=== PATIENT | female | born 1970 | race Caucasian/White ===

== ENCOUNTER 2018-11-28 19:41 | Inpatient (IN) ==
[2018-11-28 20:38] LABS: BASO# 0.05 X1000 (0.0-0.2); BASO% 0.4 % (0.0-0.8); EOS# 0.53 X1000 (0.0-0.7); EOS% 4.4 % (0.0-10.0); HEMATOCRIT 38.8 % (37.0-47.0); HEMOGLOBIN 12.5 g/dL (12.0-16.0); IMM GRAN# 0.03 X1000 (0.0-0.04); IMM GRAN% 0.2 % (0.0-0.5); LYMPH# 4.14 X1000 (1.2-3.4); LYMPH% 34.3 % (20.5-51.1); MCH 27.9 PG (27-31); MCHC 32.2 g/dL (33-37); MCV 86.6 FL (81-99); MONO# 0.65 X1000 (0.11-0.59); MONO% 5.4 % (1.7-9.3); MPV 9.2 FL (7.4-10.4); NEUT# 6.68 X1000 (1.4-6.5); NEUT% 55.3 % (42.2-75.2); PLT 307 X1000 (130-400); RBC 4.48 XMIL (4.2-5.4); RDW 14.6 % (11.5-14.5); WBC 12.08 X1000 (4.8-10.8)
[2018-11-28 21:04] LABS: AGAP 9; ALB/GLOB RATIO 1.1; ALBUMIN 4.1 g/dL (3.5-5.0); ALKALINE PHOSPHATASE 89 U/L (32-104); BUN 20 mg/dL (8-22); CALCIUM 8.9 mg/dL (8.8-10.2); CHLORIDE 105 mmol/L (98-107); COSMO 288; CREATININE 0.7 mg/dL (0.5-0.9); ESTIMATED GFR > 60; GLUCOSE 133 mg/dL (70-104); GOT 20 U/L (10-30); GPT 19 U/L (10-36); POTASSIUM 3.8 mmol/L (3.5-5.1); SODIUM 142 mmol/L (136-145); TCO2 28 mmol/L (25-35); TOTAL BILIRUBIN 0.23 mg/dL (0.20-1.00); TOTAL PROTEIN 7.7 g/dL (6.3-8.3)
--- NOTE | 2018-11-28 22:00 | Diag Imaging Result Doc PS360 ---
EXAM: CT EXT LOWER RIGHT W/CON 11/28/2018 HISTORY: right ankle cellulitis TECHNIQUE: CT of the right ankle with intravenous contrast COMMENT: The current study is compared with the previous examination of 08/23/2018. There are erosions of the plafond and talar dome which were also present at the time the previous study. The upper part of the subtalar joint appears more irregular than on the previous study and there are erosions in the articular surfaces of the cuboid and cuneiforms and tarsal navicular. This was also the case previously. The area of hyperdensity seen posterior to the ankle and just above the calcaneus, anterior to the Achilles tendon is somewhat less dense and homogeneous and on the previous study. It is possible that this represented a deposit of calcium pyrophosphate or possibly a gouty tophus. Some hyperdense material is also seen between the distal fibula and the talus. There is no definite abscess however there is extensive subcutaneous edema and edema surrounding the ankle and tarsus. 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 The possibility of septic arthritis, gout or even neuropathic joint disease cannot be excluded. Electronically signed by George Cheney 11/28/2018 9:57 PM
--- NOTE | 2018-11-28 23:06 | PROVIDER DOCUMENTATION ---
This chart was entered by Lindsay Celestin Scribe, acting as scribe for Hany Ghosh CRNP. HPI-Musculoskeletal Pain/Inj - GENERAL Chief Complaint: Edema Stated Complaint: (R) ANKLE SWELLING Time Seen by Provider: 11/28/18 20:00 Source: patient - HX OF PRESENT ILLNESS-MUSKULOSKELTAL Nature of Presenting Problem: 48 yof c/o rt ankle swelling starting yesterday. pt sts dr. burden cut out large portion of ankle, skin, subcutaneous tissue and fascia, due to septic arthritis in ankle in october 2017. pt denies injury or fall. swelling has not spread to calf. Quality of Pain: reports: other (swelling) Severity in ED: mild Onset/Duration: other (yesterday) Timing: still present - FALL INJURY Location of Pain/Injury: reports: none Pain Radiation: reports: no radiation Symptoms prior to fall:: reports: none Loss of Consciousness: no loss of consciousness Injury Associated Symptoms: reports: denies symptoms - LOWER EXTREMITY PAIN/INJURY Lower Extremities Pain: ankle: right (swelling, redness and tenderness ) Context / Method of Injury: reports: other (hx of rt ankle sx last year) Associated Symptoms: reports: denies symptoms Review of Systems - Adult - REVIEW OF SYSTEMS - ADULT Constitutional: reports: no symptoms reported. denies: fever, fatique, night sweats Eyes: reports: no symptoms reported Ears, Nose, Mouth & Throat: reports: no symptoms reported Cardiovascular: reports: no symptoms reported Respiratory: reports: no symptoms reported Gastrointestinal: reports: no symptoms reported Genitourinary: reports: no symptoms reported Musculoskeletal: reports: see HPI, joint swelling (rt ankle) Integumentary: reports: no symptoms reported Neurological: reports: no symptoms reported Psychiatric: reports: no symptoms reported Endocrine: reports: no symptoms reported Hematologic/Lymphatic: reports: no symptoms reported Allergic/Immunologic: reports: no symptoms reported All Other Systems: Reviewed and Negative Past History - Adult - PAST MEDICAL HISTORY-ADULT Review of Records: reports: Old Records Reviewed, Nursing Assessment Review, Medications Reviewed, Social history reviewed & non-contributory. Major Childhood Illnesses: reports: history unknown Cardiovascular: reports: HTN, other (edema of feet) Respiratory: reports: denies history, sleep apnea Gastrointestinal: reports: denies history Obstetrical/Gynecological: reports: denies history, other Genitourinary: reports: denies history, kidney disease Musculoskeletal: reports: arthritis, chronic pain, intervertebral disc disease Neurological: reports: denies history Psychiatric: reports: anxiety, depression, other (narcotic addiction) Endocrine/Immune: reports: thyroid disorder Other Conditions: reports: other cancer - PRIOR SURGERIES/PROCEDURES Surgical/Procedure History: reports: reviewed, not pertinent, orthopedic (extremity), other (tympanoplasty as an adult) - PRIOR HOSPITALIZATIONS Prior Hospitalizations: reports: other (for septic joint) - IMMUNIZATION STATUS Childhood Immunizations: See Nurse Assessment Flu Vaccine: See Nurse Assessment - FAMILY HISTORY Family History: reviewed, not pertinent - SOCIAL HISTORY Smoking: cigarettes, greater than 1 pack/day Provider spent 3-5 mins advising pt. on dangers of tobacco.: Discussed manners to quit use, and f/u contacts for add'l counseling. Substance Use: none/never Physical Exam-Injury Related - Physical Exam-Injury Related Initial Vital Signs Reviewed: Yes General Appearance: appears well, alert, no apparent distress. negative: lethargic, slow to respond, obtunded Immobilization?: negative: backboard, C-collar Eyes: PERRL/EOMI, pink conjunctivae Head, Ears, Nose, Mouth & Throat: normocephalic/atraumatic, moist mucous membranes, normal ENT inspection Neck: non-tender, full range of motion, supple, normal inspection Respiratory: chest non-tender, lungs clear, normal breath sounds Cardiovascular: normal peripheral pulses, regular rate, rhythm Chest/Breast: deferred Peripheral Pulses: radial (R): 2+, radial (L): 2+ Abdominal Exam: normal bowel sounds, non tender, soft Female Genitalia/Pelvic Exam: deferred Lymphatic: no adenopathy Back Exam: normal inspection, no CVA tenderness, no vertebral tenderness Extremity: normal range of motion, no calf tenderness, erythema (rt ankle), swelling (rt ankle), tenderness (rt ankle to palp), other (swelling not moving up rt leg). negative: non-tender, normal inspection, abnormal NV exam, calf tenderness, deformity, inflammation Integumentary: normal color, warm/dry Neurologic: grossly normal, no motor/sensory deficits Psych/Mental Status: normal mood/affect, normal thought content, normal thought process, oriented x 3 - Glascow Coma Score Best Eye Response (Maysel): (4) open spontaneously Best Verbal Response (Priya): (5) oriented Best Motor Response (Priya): (6) obeys commands Priya Total: 15 Progress - PLAN OF CARE/RESULTS Progress/Plan/Lab Results: Vital Signs - 8 hr 11/28/18 19:45 Temperature 97.7 F Pulse Rate 119 H Respiratory Rate 19 Blood Pressure 126/86 O2 Sat by Pulse Oximetry 99 Laboratory Results - last 24 hr 11/28/18 11/28/18 20:25 20:25 WBC 12.08 H RBC 4.48 Hgb 12.5 Hct 38.8 MCV 86.6 MCH 27.9 MCHC 32.2 L RDW Std Deviation 14.6 H Plt Count 307 MPV 9.2 Immature Gran % (Auto) 0.2 Neut % (Auto) 55.3 Lymph % (Auto) 34.3 Gates % (Auto) 5.4 Eos % (Auto) 4.4 Baso % (Auto) 0.4 Immature Gran # (Auto) 0.03 Neut # (Auto) 6.68 H Lymph # (Auto) 4.14 H Gates # (Auto) 0.65 H Eos # (Auto) 0.53 Baso # (Auto) 0.05 Sodium 142 Potassium 3.8 Chloride 105 Carbon Dioxide 28 Anion Gap 9 BUN 20 Creatinine 0.7 Estimated GFR/1.73 m2 > 60 BUN/Creatinine Ratio 29 Glucose 133 H Calculated Osmolality 288 Calcium 8.9 Total Bilirubin 0.23 AST 20 ALT 19 Alkaline Phosphatase 89 Total Protein 7.7 Albumin 4.1 Globulin 3.6 Albumin/Globulin Ratio 1.1 Orders Category Date Time Status CT EXT LOWER RIGHT W/CON [CT] Stat Exams 11/28/18 20:12 Completed CBC WITH DIFF [HEME] Stat Lab 11/28/18 20:25 Completed COMPREHENSIVE METABOLIC PANEL [CHEM] Stat Lab 11/28/18 20:25 Completed patient verbalizes an understanding of POC and agrees to treatment rendered here today. Result Diagrams: 11/28/18 20:25 11/28/18 20:25 - CT/MRI 1 CT Study: Lower Ext Impression: Abnormal (COMMENT: The current study is compared with the previous examination of 08/23/2018. There are erosions of the plafond and talar dome which were also present at the time the previous study. The upper part of the subtalar joint appears more irregular than on the previous study and there are erosions in the articular surfaces of the cuboid and cuneiforms and tarsal nick icular. This was also the case previously. The area of hyperdensity seen posterior to the ankle and just above the calcaneus, anterior to the Achilles tendon is somewhat less dense and homogeneous and on the previous study. It is possible that this represented a deposit of calcium pyrophosphate or possibly a gouty tophus. Some hyperdense material is also seen between the distal fibula and the talus. There is no definite abscess however there is extensive subcutaneous edema and edema surrounding the ankle and tarsus. 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 The possibility of septic arthritis, gout or even neuropathic joint disease cannot be excluded.), See EMR Report - CONSULTS/PCP/HOSPITALIST Notification #1 *Consult/PCP/Hospitalist*: Dr Benedict Time Discussed: 10:45 Reason/Comments: cellulitis of the ankle Consult Disposition: other (admit and consult dr burden in am) #2 Consult: Dr Call Time Discussed: 23:04 Reason/Comments: cellulitis Consult Disposition: Admit Departure - Departure Date of Disposition Decision: 11/28/18 Time of Disposition Decision: 23:04 DIAGNOSIS: Cellulitis of left ankle Disposition: ADMITTED INPATIENT 09 Certified Medical Emergency: Emergent Condition: Critical Additional Freetext Instructions: ED Follow Up Instructions: You have been treated by a care provider in the Emergency Department. These instructions are being provided to you so you can have an understanding of how to care for yourself upon discharge. Upon discharge from the Emergency Department, you are responsible for making arrangements for follow-up care by a physician of your choice. Take all prescribed medications as directed. Return to the Emergency Department immediately for any new or worsening symptoms. You may call the Physician Referral phone number at [phone] to obtain a list of Physicians who are taking new patients. Referrals and Follow-Ups: Steve Galvan MD [Primary Care Provider] - - Critical Care Note This patient required my direct & personal management of CC.: No Attestation - Physician/ MIKE Attestation Patient care was provided by Advanced Practice Provider:: Yes Advanced Practice Provider:: Hany Ghosh Advanced Practice Provider documentation review:: The Mid-level provider documentation, treatment plan and medical decision making was reviewed by the physician who agrees with all treatment and medical decision making by the MLP. The physician spent face to face time with patient:: No Advanced Practice Provider documentation review:: Supervising physician onsite and consulted in the evaluation and care of this patient. The physician did not have a face to face encounter with the patient. This chart was documented by the indicated scribe, (Lindsay Celestin Scribe) and accurately reflects the services I performed and decisions made by Davina mesa Reagan R., CRNP, as attested by the provider's signature.
[2018-11-29] MEDS ORDERED: ROCEPHIN 2 GM in NS 50 ML IV ONE (00:56)
[2018-11-29] MEDS ORDERED: VANCOMYCIN 1 GM/NS 1 GM/250 ML IVPB IV ONE (00:56)
[2018-11-29] MEDS ORDERED: ROCEPHIN 2 GM in NS 50 ML IV SCH (01:59)
[2018-11-29] MEDS ORDERED: VANCOMYCIN IV PER PHARMACY MISC SCH (01:59)
[2018-11-29] MEDS ORDERED: TYLENOL PO PRN (01:59)
[2018-11-29] MEDS ORDERED: ZOFRAN IV PRN (01:59)
[2018-11-29 02:26] LABS: C REACTIVE PROT QUANT 9.39 mg/L (0.00-5.00); URIC ACID 5.1 mg/dL (2.4-5.7)
[2018-11-29] MEDS: OXY IR PO PRN ×2 (03:00→14:35)
[2018-11-29] MEDS ORDERED: VANCOMYCIN 2,050 MG in NS 500 ML IV ONE (03:00)
--- NOTE | 2018-11-29 03:33 | HISTORY AND PHYSICAL ---
PHYSICIAN: Patient of Dr. Galvan. REASON FOR ADMISSION: Two-day history of right ankle pain and swelling. HISTORY OF PRESENT ILLNESS: Ms. Almaz Mackenzie is a 48-year-old woman with past medical history of chronic pain syndrome, gastric ulcers, hypertension, restless legs syndrome, sleep apnea, who was last treated here for possible cellulitis and septic arthritis of the right ankle. Comes in today complaining of a 2-day history of right ankle pain and swelling without any preceding trauma. Denies any other joint swelling or rash. No fever or chills. No cardiorespiratory, GI, or neurological complaints. Said that over the last 24 hours the swelling, and redness and pain have gotten increasingly worse and she decided to come and get this checked out. REVIEW OF SYSTEMS: Twelve system review was done. Positive findings per HPI. ALLERGIES: Bactrim. HOME MEDICATIONS: Include Phenergan, nafcillin, furosemide, Lyrica, senna Plus, Prinzide, Requip, rifampin, Suboxone, Xanax, Zoloft. SURGICAL HISTORY: Left elbow surgery, tubal ligation, abdominal hernia repair with mesh, removal of mesh. SOCIAL HISTORY: Patient smokes 1 pack a day, plans to quit. No alcohol or drug use. Lives with her son. FAMILY HISTORY: Notable for type 2 diabetes and lymphoma. LABORATORY WORK: White count 12,000 up from 10,000 three months ago. Hemoglobin and hematocrit 12 and 38, platelets 287,000 normal differential. BUN is 20, creatinine 0.7, glucose 133. CT scan of the lower extremity showed severe erosive arthritis of the ankle and into intertarsal joints, possibility of septic arthritis, gout or neuropathic joint disease cannot be excluded. PHYSICAL EXAMINATION: GENERAL: Obese, middle-aged woman who is not in acute distress. VITAL SIGNS: Heart rate is 119, temperature is 97.7 degrees, respiratory rate is 19, blood pressure is 126/86, 99% on room air. HEENT: Head is normocephalic, atraumatic. Eyes, RICHARD, EOMI. She is anicteric and not pale. ENT and oropharynx exam is grossly normal. NECK: Supple. No JVD or carotid bruit. No thyromegaly. CHEST: Clear when auscultated with good entry both lung zavala. CARDIOVASCULAR: First and second heart sounds are heard. No gallops, murmurs, rubs. Rhythm is regular. ABDOMEN: Protuberant, soft, nontender. No mass, megaly. Bowel sounds hypoactive. RECTAL: Exam is deferred at this time. EXTREMITIES: Patient has localized swelling of the lateral malleolar area and some slight erythema. It is warm to touch compared to surrounding tissue and is tender to touch, but no induration or fluctuance noted. There is some slight mild erythema proximal to this area on the right lateral lower aspect her right extremity. No edema, clubbing or peripheral cyanosis. Pulses distally intact, regular. NEUROLOGICAL: No gross focal deficits. SKIN: Intact. No breakdown, lesion, erythema other than findings noted as above. MUSCULOSKELETAL: Exam is grossly normal. ASSESSMENT: 1. Inflammatory arthritis, septic versus nonseptic arthritis. 2. Mild dehydration. 3. Hypertension. PLAN: C-reactive protein, uric acid will be ordered. Discontinue hydrochlorothiazide and Lasix as these can increase the potential of a crystal-induced inflammatory arthritis. Dr. Benedict, who is covering for Dr. Zamora, was notified and he will pass along this patient's name to Dr. Zamora for further workup which may include an arthrocentesis. The patient was started on IV vancomycin and Rocephin and ID may be consulted for further input if so desired. For now, we will treat patient symptomatically in addition to the aforementioned IV antibiotics prescribed. The patient will be transferred to Dr. Galvan's service in the morning. cc: MD Steve Ferris MD [facility]
[2018-11-29] MEDS: PERICOLACE PO SCH ×3 (05:04→21:18)
[2018-11-29] MEDS: NAPROSYN PO SCH ×2 (05:04→08:25)
[2018-11-29] MEDS: SUBOXONE 8 MG/2 MG SL SCH ×2 (05:04→15:57)
[2018-11-29] MEDS: LOVENOX SUBQ SCH (05:06)
[2018-11-29] MEDS: PHENERGAN PO PRN (05:50)
[2018-11-29 05:53] LABS: BASO# 0.04 X1000 (0.0-0.2); BASO% 0.4 % (0.0-0.8); EOS# 0.38 X1000 (0.0-0.7); EOS% 4.2 % (0.0-10.0); HEMATOCRIT 37.5 % (37.0-47.0); HEMOGLOBIN 11.9 g/dL (12.0-16.0); IMM GRAN# 0.02 X1000 (0.0-0.04); IMM GRAN% 0.2 % (0.0-0.5); LYMPH# 3.49 X1000 (1.2-3.4); LYMPH% 38.4 % (20.5-51.1); MCH 27.9 PG (27-31); MCHC 31.7 g/dL (33-37); MCV 87.8 FL (81-99); MONO# 0.61 X1000 (0.11-0.59); MONO% 6.7 % (1.7-9.3); MPV 9.3 FL (7.4-10.4); NEUT# 4.54 X1000 (1.4-6.5); NEUT% 50.1 % (42.2-75.2); PLT 303 X1000 (130-400); RBC 4.27 XMIL (4.2-5.4); RDW 14.8 % (11.5-14.5); WBC 9.08 X1000 (4.8-10.8)
[2018-11-29 05:58] LABS: AGAP 7; BUN 18 mg/dL (8-22); CHLORIDE 104 mmol/L (98-107); COSMO 285; CREATININE 0.7 mg/dL (0.5-0.9); ESTIMATED GFR > 60; GLUCOSE 96 mg/dL (70-104); POTASSIUM 3.9 mmol/L (3.5-5.1); SODIUM 142 mmol/L (136-145); TCO2 31 mmol/L (25-35)
[2018-11-29] MEDS: TEFLARO 600 MG in NS 250 ML IV SCH ×2 (08:24→19:57)
[2018-11-29] MEDS: XANAX PO SCH ×3 (08:25→21:18)
[2018-11-29] MEDS: LYRICA PO SCH ×2 (08:25→21:18)
[2018-11-29] MEDS: RIFAMPIN PO SCH (08:25)
[2018-11-29] MEDS: ZOLOFT PO SCH (08:25)
[2018-11-29] MEDS: PRINIVIL PO SCH (08:26)
[2018-11-29] MEDS: NICODERM PATCH TD SCH (10:01)
[2018-11-29] MEDS: ZOSYN 3.375 GM in NS 50 ML IV SCH ×3 (10:01→21:17)
[2018-11-29] MEDS ORDERED: VANCOMYCIN 1,950 MG in NS 500 ML IV SCH (15:00)
[2018-11-29] MEDS: ZANAFLEX PO SCH (21:18)
[2018-11-29] MEDS: VOLTAREN PO SCH (21:18)
[2018-11-29] MEDS: REQUIP PO SCH (21:18)
[2018-11-30] MEDS: LOVENOX SUBQ SCH (03:06)
[2018-11-30] MEDS: ZOSYN 3.375 GM in NS 50 ML IV SCH ×4 (03:06→21:49)
[2018-11-30] MEDS: SUBOXONE 8 MG/2 MG SL SCH ×2 (03:06→17:06)
--- NOTE | 2018-11-30 03:45 | PROGRESS NOTE ---
DATE: 11/29/2018 SUBJECTIVE: The patient was admitted with severe pain in the right ankle and right foot. Her white count was 12.08 yesterday, however it has come down to 9000. She was seen in the emergency room last night. She has been admitted. She has been given ceftaroline 600 mg every 12 hours, rifampin 600 mg daily, piperacillin every 6 hours. We will wait for the orthopedic consult before we decide about further plans. -8 cc: Steve Galvan MD
--- NOTE | 2018-11-30 07:46 | ORTHOPAEDICS CONSULTATION ---
DATE: 11/30/2018 CHIEF COMPLAINT: Right foot pain. HISTORY OF PRESENT ILLNESS: Ms. Young is a 48-year-old female whom I have been following in my clinic for a long time. We have operated on her left side. She seems pretty stable on that side. This right side, unfortunately, has undergone a lot of Charcot related changes over the past several months. We had discussed a big Charcot reconstruction back in August 2018 but at that point, she did not wish to pursue surgical intervention. We tried to get her a [place] boot but, unfortunately, it was too expensive for her. It sounds like she has had a recent flare of pain and some swelling to this right lower extremity and came to the hospital, and was admitted per the medicine service. Her labs were a little bit elevated as far as her white count and her C- reactive protein. She has been started on antibiotics. PAST MEDICAL HISTORY: Diabetes, gastric ulcers, hypertension. PAST SURGICAL HISTORY: She has had a right ankle surgery in the past by me for a septic ankle. That was back in October 2017. She did end up clearing that up. She was septic at that time. ALLERGIES: Allergies are to vancomycin and sulfamethoxazole. FAMILY HISTORY: Positive for diabetes. SOCIAL HISTORY: She still smokes. She denies any alcohol use. REVIEW OF SYSTEMS: Positive for right foot pain. All other systems are essentially negative. PHYSICAL EXAMINATION: General: A slightly ill-appearing female. She is in no acute distress, lying in her hospital bed. Head and Neck: Normocephalic, atraumatic. Respirations: Nonlabored breathing. Cardiovascular: Regular pulse. Abdomen: Nondistended. Right Lower extremity Examination: There is not a lot of swelling on exam today and there is not really any erythema to the foot. Her previous incision on the lateral aspect of the foot is well-healed. She really does not have much sensation at all to the toes. I do not see any skin ulcers anywhere. IMAGING: CT scan of the right ankle shows a lot of bony destruction of the talus at the ankle joint and the subtalar joint, and the talonavicular joint. It looks like there may be a little bit of fluid around the talus as well. ASSESSMENT: 1. Right Charcot neuroarthropathy of the ankle, hindfoot, and midfoot. 2. Possible right ankle and hindfoot osteomyelitis. PLAN: I have discussed with Ms. Young about performing a bone biopsy and possible irrigation and debridement of the ankle. I think that would give us the best chance to understand whether this is truly infected or not. We will plan on doing this on , 12/02/2018. I went over with her the procedure, risks, benefits, and potential complications. Risks include, but are not limited to infection, wound healing problems, damage to nerves, arteries, veins, numbness, continued pain, DVT, and anesthesia related risks. After discussing these with the patient, she expressed understanding and wished to proceed. If it does look like it is infected in there, at that time, I would excise the infected bone and use an antibiotic cement spacer. If it does not look purulent or infected, then we will plan on getting the bone biopsy and waiting for a definitive result so we could stage a big Charcot reconstruction. I did discuss with her specifically that if it is infected, amputation is a likely outcome in the end. We will get everything set up for for surgery. cc: MD Steve Zuniga MD
[2018-11-30] MEDS: LYRICA PO SCH ×2 (08:15→21:50)
[2018-11-30] MEDS: RIFAMPIN PO SCH (08:15)
[2018-11-30] MEDS: PRINIVIL PO SCH (08:15)
[2018-11-30] MEDS: ZOLOFT PO SCH (08:15)
[2018-11-30] MEDS: VOLTAREN PO SCH ×2 (08:15→21:50)
[2018-11-30] MEDS: TEFLARO 600 MG in NS 250 ML IV SCH ×2 (08:15→20:47)
[2018-11-30] MEDS: NICODERM PATCH TD SCH (08:15)
[2018-11-30] MEDS: PERICOLACE PO SCH ×2 (08:15→21:50)
[2018-11-30] MEDS: OXY IR PO PRN ×3 (09:39→23:09)
--- NOTE | 2018-11-30 09:48 | PROGRESS NOTE ---
DATE: 11/30/2018 SUBJECTIVE: Ms. Young was seen by Dr. Zamora, and she understands his plan of treatment, and she also understands that if it is a very septic arthritis, then he may have to do an amputation. -3 cc: Steve Galvan MD
[2018-11-30] MEDS: XANAX PO SCH ×3 (12:00→21:50)
[2018-11-30] MEDS: ZANAFLEX PO SCH (21:50)
[2018-11-30] MEDS: REQUIP PO SCH (23:08)
[2018-12-01] MEDS: SUBOXONE 8 MG/2 MG SL SCH ×2 (02:11→13:43)
[2018-12-01] MEDS: LOVENOX SUBQ SCH (03:07)
[2018-12-01] MEDS: ZOSYN 3.375 GM in NS 50 ML IV SCH ×2 (03:07→09:40)
[2018-12-01] MEDS: OXY IR PO PRN ×7 (03:39→23:51)
--- NOTE | 2018-12-01 07:21 | ORTHOPAEDICS PROGRESS NOTE ---
DATE: 12/01/2018 SUBJECTIVE: Ms. Young complained of pain in the ankle this morning. She is in bed and has it elevated. OBJECTIVE: Right Lower Extremity Examination: She does have swelling to the ankle joint. I do not see a lot of erythema there. There are no open areas. There is no drainage. She does have numbness to the foot throughout. ASSESSMENT: 1. Right Charcot hindfoot and ankle. 2. Right possible ankle infection. PLAN: We will plan on taking Ms. Young to the OR tomorrow for a bone biopsy. If we get in there and it is purulent, we will perform irrigation, debridement, and partial excision of talus. I went over everything with her. She is going to be n.p.o. after midnight tonight. We will plan on getting everything done tomorrow. cc: MD Steve Zuniga MD
[2018-12-01] MEDS: PERICOLACE PO SCH ×2 (07:59→20:43)
[2018-12-01] MEDS: ZOLOFT PO SCH (08:00)
[2018-12-01] MEDS: NICODERM PATCH TD SCH (08:00)
[2018-12-01] MEDS: LYRICA PO SCH ×2 (08:00→20:43)
[2018-12-01] MEDS: RIFAMPIN PO SCH (08:00)
[2018-12-01] MEDS: VOLTAREN PO SCH ×2 (08:00→20:43)
[2018-12-01] MEDS: XANAX PO SCH ×4 (08:01→20:43)
[2018-12-01] MEDS: TEFLARO 600 MG in NS 250 ML IV SCH (08:01)
[2018-12-01] MEDS: PRINIVIL PO SCH (08:11)
[2018-12-01] MEDS: MORPHINE IV PRN (09:34)
--- NOTE | 2018-12-01 09:44 | PROGRESS NOTE ---
DATE: 12/01/2018 Ms. Young has severe arthritis in the ankle with tabes dorsalis type of Charcot type of joint with very little sensation. She is on IV piperacillin. This could be septic arthritis. However, it does not look very inflamed. Initial white count, however, was 12,080. Her blood sugar is 96 this morning. We will continue the current management. She is going to have the surgery tomorrow. -1 cc: Steve Galvan MD
--- NOTE | 2018-12-01 11:19 | INFECTIOUS DISEASE CONSULT REP ---
DATE: 12/01/2018 CONCLUSION: The patient is admitted the hospital with a repeat left ankle infection which happened approximately a year ago. At that time, an oxacillin sensitive Staphylococcal aureus was isolated from the patient's blood and left ankle. I suspect that the patient is having a recurrence of the infection in the left ankle and it will be caused by the same organism, namely oxacillin-sensitive Staphylococcus aureus. RECOMMENDATIONS: I have discontinued the current antibiotics and placed the patient on Ancef. DISCUSSION: The patient tells me that in the past 3 to 4 days she has had increasing right ankle pain. The ankle has been swelling as well. She does not remember injuring herself in the last few days. The patient's CBC shows a white count of 9880, hemoglobin 11.9, and platelet count 303,000. Creatinine is 0.7. GFR is greater than 60. Liver function studies are normal. PAST MEDICAL HISTORY/REVIEW OF SYSTEMS: Eyes/Ears: The patient can hear okay. She wears glasses for reading. Neck: No stiffness. Respiratory: No cough or shortness of breath. Cardiac: No chest pain or palpitations. GI: No nausea, vomiting, or diarrhea. : No dysuria or flank pain. Bones/Joints/Muscles: See present illness. Neurologic: Patient does not have seizures. She does have a Charcot foot in which she does not feel much in her left foot. Integument: No rash. PALLIATIVE CARE PHYSICIAN HISTORY: The patient is a 2, para 2, AB 0. She has had a tubal ligation. PREVIOUS HOSPITALIZATIONS/OPERATIONS: She had surgery on her left foot. She has also had surgery on her right ankle, which happened a year ago. She has had a thyroidectomy with only a very small amount of thyroid left in. The patient has also been admitted with pneumonia. She has had labor and deliveries, a tubal ligation, left elbow surgery, and abdominal hernia repaired with mesh. MEDICAL DISEASES: Patient previously had hypertension; however, she does not have it anymore. The patient had most of her thyroid removed. The patient has fibromyalgia, osteoarthritis, and Charcot ankle. INFECTIOUS DISEASE HISTORY: Positive for pneumonia and right ankle infection. FAMILY HISTORY: Positive for diabetes, lymphoma, myocardial infarction, and stroke. SOCIAL HISTORY: The patient lives with her son. She smokes cigarettes. She does not drink alcoholic beverages or abuse drugs. She is disabled. ALLERGIES: She is allergic to vancomycin and Septra. HOME MEDICATIONS: Xanax, Suboxone, Voltaren, Lasix, nafcillin, Lyrica, Phenergan, rifampin, Requip, Ana Lilia-Colace, Zoloft and Zanaflex. PHYSICAL EXAMINATION: Vital Signs: Temperature is 97.9 degrees, pulse 63, respirations 18, blood pressure 94/59. Patient is 5 feet 9 inches tall. She weighs 250 pounds. General: This is an ill-appearing and obese middle-aged female. She is in no acute distress. HEENT: She can hear my spoken words and see near objects. There is no drainage from the nose or ears. I did not see any white patches on her tongue. Neck: No meningismus. Lungs: Clear to auscultation. Cardiovascular: Regular heart rate. Abdomen: Soft and nontender. Bones/Joints/Muscles: The patient's left ankle is swollen and tender. It is not erythematous or draining. I cleaned an area with alcohol on her ankle and with a needle I stuck in approximately 1 to 2 cm, I got back a very small amount of blood. There was questionably some purulent material with it. I have sent this to the microbiology lab. Neurologic: The patient is alert. She can move her extremities. There is no tremor. Her sensation is intact to touch. Her memory as regarding her medical history is intact. Integument: No rash. Thank you for the consult. cc: MD Steve Cochran MD
[2018-12-01] MEDS: KEFZOL 2 GM/D5W 2 GM/50 ML IVPB IV SCH ×2 (12:15→20:43)
[2018-12-01] MEDS: PHENERGAN PO PRN (16:17)
[2018-12-01] MEDS: REQUIP PO SCH (20:43)
[2018-12-01] MEDS: ZANAFLEX PO SCH (20:43)
[2018-12-02] MEDS: SUBOXONE 8 MG/2 MG SL SCH ×2 (02:26→15:19)
[2018-12-02] MEDS: LOVENOX SUBQ SCH (02:26)
[2018-12-02] MEDS: KEFZOL 2 GM/D5W 2 GM/50 ML IVPB IV SCH ×3 (03:11→20:22)
[2018-12-02] MEDS ORDERED: VERSED ONE (08:12)
[2018-12-02] MEDS ORDERED: FENTANYL ONE (08:12)
[2018-12-02] MEDS ORDERED: DIPRIVAN 1% ONE (08:13)
[2018-12-02] MEDS ORDERED: KETAMINE ONE (08:28)
[2018-12-02] MEDS ORDERED: OFIRMEV 1000 MG/ISOTONIC SOLN 1,000 MG/100 ML BOTTLE ONE (09:20)
[2018-12-02] MEDS ORDERED: ROBINUL ONE (09:20)
--- NOTE | 2018-12-02 09:41 | PROGRESS NOTE ---
DATE: 12/02/2018 SUBJECTIVE: Her ankle on the right side culture did not reveal any growth. She is getting IV antibiotics. She is going to have surgery today for severe arthritis. She is on Ancef as per Dr. Ferrari, and we will wait for the results after surgery. -2 cc: Steve Galvan MD
[2018-12-02] MEDS ORDERED: XYLOCAINE 1% ONE (09:43)
[2018-12-02] MEDS ORDERED: MARCAINE 0.5% PF ONE (09:43)
--- NOTE | 2018-12-02 10:20 | OPERATIVE NOTE ---
PROCEDURE DATE: 12/02/2018 PREOPERATIVE DIAGNOSES: 1. Right Charcot ankle and hindfoot. 2. Right ankle history of infection. POSTOPERATIVE DIAGNOSES: 1. Right Charcot ankle and hindfoot. 2. Right ankle history of infection. PROCEDURES PERFORMED: 1. Right ankle arthrotomy with talus biopsy. 2. Right open fibular biopsy. SURGEON: Brandon Zamora MD. SALON DESIGNER: Frank Forbes RN. ANESTHESIA: General with LMA. TOURNIQUET TIME: Less than 20 minutes. IMPLANTS: None. DISPOSITION: To PACU, hemodynamically stable. INDICATION FOR PROCEDURE: Ms. Young is a 48-year-old female who had presented to the hospital and was admitted for right ankle pain and possible infection. She has a known history of diabetic Charcot neuroarthropathy. We have done a Charcot reconstruction on the left side. We talked about doing it on the right but she has not been willing to undergo it just yet. She came in. I discussed with her about doing a bone biopsy, not totally convinced that it is infected. It may just be her Charcot related changes. We discussed about doing an open biopsy and taking cultures. She expressed understanding and wished to proceed. DESCRIPTION OF PROCEDURE: Ms. Young was identified in the preoperative holding area. The right ankle was marked as the correct surgical site. She was then wheeled to the operating room and placed supine on the operating table. All bony prominences were well padded. She was induced under general anesthesia. LMA was placed. A tourniquet was placed to the right thigh. Right lower extremity was prepped chlorhexidine-gluconate scrub and then ChloraPrep, and draped in a normal sterile fashion. A surgical pause was performed. We identified the correct patient, correct side, and the correct procedure. She is on scheduled IV antibiotics. We elevated the leg and the tourniquet was inflated to 300 mmHg. We started over the distal fibula through her previous incision. Dissection was carried down to the fibula. There was no purulence that was there. I did use a reamer and took bone plug of the distal fibula. We sent some of it for culture and the rest to pathology. I then irrigated that out and then closed it with nylon. I then made an incision anteriorly. Dissection was carried down. We protected the neurovascular bundle. I then made an arthrotomy in the ankle joint. There was not any purulent material that was. There was a little bit of serous fluid. We took cultures of the ankle joint itself and then I took a bone biopsy of the talus. I sent some to pathology and then some to the lab for cultures but I did not see any purulence at all so we did not perform a huge debridement. I then closed at that anterior incision with 0 Vicryl for the deep layers, 2-0 Vicryl for the subcutaneous, and nylon on the skin. Adaptic, 4x4s, ABD, soft roll, and a posterior splint were applied. Tourniquet was let down. She had good capillary refill return to the toes. She was then awoken from general anesthesia, moved to her own bed, and then taken to the PACU in stable condition. PLAN: Postoperatively, we will follow her cultures. If everything grows out negative, then I will more than likely discuss with her about doing a tibiotalocalcaneal fusion. If it looks like there is any osteomyelitis, then we would need to come back in and debride it and do cement spacer antibiotics as well. cc: MD Steve Zuniga MD
[2018-12-02] MEDS: NICODERM PATCH TD SCH (11:15)
[2018-12-02] MEDS: PERICOLACE PO SCH ×3 (11:15→20:27)
[2018-12-02] MEDS: LYRICA PO SCH ×2 (11:15→20:22)
[2018-12-02] MEDS: OXY IR PO PRN ×5 (11:16→23:38)
[2018-12-02] MEDS: ZOLOFT PO SCH (11:16)
[2018-12-02] MEDS: PRINIVIL PO SCH (11:16)
[2018-12-02] MEDS: XANAX PO SCH ×3 (11:17→20:24)
[2018-12-02] MEDS: VOLTAREN PO SCH ×2 (12:01→20:51)
[2018-12-02] MEDS: PHENERGAN PO PRN ×2 (12:58→23:30)
--- NOTE | 2018-12-02 14:57 | INFECTIOUS DISEASE PROGRESS NO ---
DATE: 12/02/2018 PRESENT ILLNESS: Ms. Young is being treated for a recurrent right ankle infection and is status post right ankle arthrotomy with talus biopsy and a right open fibular biopsy done today per Dr. Zamora. Cultures and pathology are pending, however we expect that the same organisms she had previously of oxacillin sensitive Staph aureus will most likely recur. MEDICATIONS: She is receiving Ancef 2 g IV every 8 hours. PHYSICAL EXAMINATION: Vital Signs: Temperature is 97.8 degrees, pulse rate 90, respiratory rate 16, blood pressure 120/51, O2 saturation is 96% on room air. General: This is an obese, chronically ill-appearing middle-aged female. She is sitting up in a chair currently in no acute distress. HEENT: Atraumatic, normocephalic. Oral mucous membranes are pink and moist. Conjunctivae are pink. Neck: Supple. Trachea is midline. Cardiovascular: Heart rate is regular. Respiratory: Lung sounds are clear to auscultation bilaterally. No work of breathing is noted. Abdomen: Soft, obese and nontender. Bowel sounds are active. Extremities: There is an Ramana wrap splint in place to the right lower extremity which is dry and intact. Neurologic: She is awake, alert, oriented, and able to move around with assistance. LABORATORY AND X-RAY: None available today. However, there are pending bone and right ankle cultures and Gram stain show no growth so far. Right ankle culture from yesterday shows no growth on the preliminary report. ASSESSMENT AND PLAN: Ms. Young is being treated for right lower extremity recurrent infection for which she previously had an oxacillin sensitive Staph aureus. At this point, we suspect she will have the same bacteria so she is receiving Ancef, which we will continue. She has had surgery with biopsy done today per Dr. Zamora and the patient states she may go home tomorrow. For now, we will continue the Ancef as ordered and watch for final results of the cultures. These plans have been discussed with and recommended by Dr. Ferrari. COMORBIDITIES: For Ms. Young include fibromyalgia, osteoarthritis, Charcot ankle, and cigarette smoking. Dictated by SAEID Partida for Shelton Ferrari MD cc: MD Steve Cochran MD
[2018-12-02] MEDS: ZANAFLEX PO SCH (20:22)
[2018-12-02] MEDS: PERIDEX MT SCH (20:24)
[2018-12-02] MEDS: REQUIP PO SCH (20:24)
[2018-12-02] MEDS: MORPHINE IV PRN (23:30)
[2018-12-03] MEDS: SUBOXONE 8 MG/2 MG SL SCH (02:11)
[2018-12-03] MEDS: KEFZOL 2 GM/D5W 2 GM/50 ML IVPB IV SCH (03:07)
[2018-12-03] MEDS: LOVENOX SUBQ SCH (03:07)
[2018-12-03] MEDS: OXY IR PO PRN ×3 (03:07→10:30)
[2018-12-03] MEDS: PHENERGAN PO PRN (05:48)
--- NOTE | 2018-12-03 07:46 | ORTHOPAEDICS PROGRESS NOTE ---
DATE: 12/03/2018 SUBJECTIVE: Ms. Young is lying in bed this morning. She says she had some difficulty sleeping last night. She felt really restless. OBJECTIVE: Right lower extremity exam: Splint is clean, dry, and intact. She is able to move the toes well. Good capillary refill to all the toes. ASSESSMENT: Status post right bone biopsy of the fibula, talus and cultures taken from the ankle. PLAN: I discussed with Ms. Young about the results of her surgery yesterday. I did not see any purulent material anywhere. Her Gram stains came back negative. From my standpoint, I am okay with her being discharged home, and I can see her this next Thursday in clinic. We can just follow the cultures outpatient. cc: MD Steve Zuniga MD
[2018-12-03] MEDS: VOLTAREN PO SCH (09:20)
[2018-12-03] MEDS: ZOLOFT PO SCH (09:20)
[2018-12-03] MEDS: NICODERM PATCH TD SCH (09:20)
[2018-12-03] MEDS: PERIDEX MT SCH (09:20)
[2018-12-03] MEDS: XANAX PO SCH (09:20)
[2018-12-03] MEDS: LYRICA PO SCH (09:21)
[2018-12-03] MEDS: PERICOLACE PO SCH (09:21)
[2018-12-03] MEDS: PRINIVIL PO SCH (09:27)
--- NOTE | 2018-12-03 10:20 | INFECTIOUS DISEASE PROGRESS NO ---
DATE: 12/03/2018 PRESENT ILLNESS: Initially I thought that the patient had a repeat infection in her right ankle but now it appears that she has a Charcot joint and that it causing her swelling and erythema and not an infection. MEDICATIONS: The patient is receiving Ancef 2 g IV every 8 hours. PHYSICAL EXAMINATION: Vital Signs: Temperature is 97.8, pulse 68, respirations 20, and blood pressure 104/73. General: This is a somewhat ill-appearing middle-aged female. She is in no acute distress. Head, Eyes, Ears, Nose, and Throat: She can hear my spoken words and see near objects. She does not have any white patches in her mouth. Neck: No pain with movement of her neck. Lungs: Clear to auscultation. Cardiovascular: Heart rate is regular. Abdomen: Soft and nontender. Extremities: The patient's left ankle is in a large splint and dressing. Neurologic: The patient is alert. She can move her extremities. There is no tremor. LAB AND X-RAY: All the cultures taken at surgery are negative. The bone biopsy result is pending. ASSESSMENT AND PLAN: 1. At this time it appears that the patient has a Charcot joint and she does not have a return of her Staphylococcus aureus infection in the ankle. I discussed the patient with Dr. Mitchell and Dr. Galvan and we all agreed to discharge the patient home on no antibiotics. I will follow the patient's cultures and also find the report of the patient's bone biopsy and if infection is indicated I will go ahead and restart her antibiotics. 2. Comorbidities. The patient initially did have an infection in her ankle but it does not appear now that it has recurred. The patient's comorbidity is that she has a Charcot arthropathy. cc: MD Steve Cochran MD MTDD
[2018-12-03 11:48] VITALS: BP 96/52
--- NOTE | 2018-12-03 11:48 | PROGRESS NOTE ---
DATE: 12/03/2018 SUBJECTIVE: Ms. Young had a bone biopsy yesterday as well as cultures done from the joints and bones, and she is doing better. I will discharge her today. We will be watching her cultures and biopsy results. cc: Steve Galvan MD
--- NOTE | 2018-12-03 13:04 | DISCHARGE SUMMARY ---
ADMISSION DATE: 11/28/2018 DISCHARGE DATE: 12/03/2018 Ms. Young was admitted with a diagnosis of inflammatory arthritis, possible septic arthritis in the right ankle and right foot. She had a lower extremity CT scan which revealed severe erosive arthritis in the ankle and intertarsal joints and the possibility of septic arthritis neuropathic joint was considered. She was seen by Dr. Ferrari, infectious disease doctor, and Dr. Zamora, orthopedic surgeon. Dr. Zamora decided to do the biopsy and see if he was going to operate on her. He did the bone biopsies from tibia-fibula and other bones and got joint cultures from the joints and he did not think it was septic arthritis from the looks of it and decided to discharge her today. We will be watching the bone biopsy results as well as the culture results and then decide about final treatment. I did not give her any new prescriptions today. cc: Steve Galvan MD
--- NOTE | 2018-12-10 09:47 | INFECTIOUS DISEASE PROGRESS NO ---
DATE: 01/10/2019 PRESENT ILLNESS: The patient recently was discharged from the hospital. She had surgery performed by Dr. Zamora including cultures of her foot as well as a bone biopsy. All the cultures from the foot are negative and the biopsy of the bone showed no evidence of osteomyelitis. It appears that the patient's problem with her foot and ankle is due to Charcot arthropathy. cc: MD Steve Cochran MD
== END 2018-12-03 13:38 | disposition home or self-care (01) | DRG 988 ==
LOC: ED 19:41 → SUATTDRO 11-29 01:16 → 4N 11-29 01:16
PROVIDERS: ADMIT Internal Medicine; ATTEND Internal Medicine

== ENCOUNTER 2019-01-20 09:15 | Inpatient (IN) ==
[2019-01-20] MEDS ORDERED: KEFZOL 1 GM/D5W 2 GM/100 ML IVPB ONE (09:36)
[2019-01-20] MEDS ORDERED: LR 1,000 ML ONE (09:36)
[2019-01-20] MEDS ORDERED: DIPRIVAN 1% ONE (10:12)
[2019-01-20] MEDS ORDERED: FENTANYL ONE (10:12)
[2019-01-20] MEDS ORDERED: XYLOCAINE-MPF 2% ONE (10:14)
[2019-01-20] MEDS ORDERED: QUELICIN (DOSE) ONE (10:15)
[2019-01-20] MEDS ORDERED: ROBINUL ONE (10:15)
[2019-01-20] MEDS ORDERED: DECADRON ONE (12:17)
[2019-01-20] MEDS ORDERED: ZOFRAN ONE (12:17)
[2019-01-20] MEDS ORDERED: VENTOLIN HFA ONE (12:45)
[2019-01-20] MEDS ORDERED: TORADOL ONE (12:45)
[2019-01-20] MEDS ORDERED: ZOFRAN IV PRN (14:27)
[2019-01-20] MEDS: DEMEROL ONE ×2 (14:40→14:43)
[2019-01-20] MEDS: PHENERGAN ONE ×3 (14:52→15:02)
[2019-01-20] MEDS ORDERED: PHENERGAN PO PRN (17:53)
[2019-01-20] MEDS ORDERED: CALMOSEPTINE OINTMENT TOP PRN (17:53)
[2019-01-20] MEDS: PERIDEX MT SCH ×2 (20:24→20:38)
[2019-01-20] MEDS: LYRICA PO SCH (20:36)
[2019-01-20] MEDS: OXY IR PO PRN ×2 (20:36→23:28)
[2019-01-20] MEDS: ZANAFLEX PO SCH (20:37)
[2019-01-20] MEDS: KEFZOL 1 GM/D5W 1 GM/50 ML IVPB IV SCH (20:56)
[2019-01-20] MEDS ORDERED: REQUIP PO SCH (21:00)
--- NOTE | 2019-01-20 21:07 | OPERATIVE NOTE ---
PROCEDURE DATE: 01/20/2019 PREOPERATIVE DIAGNOSES: 1. Right Charcot ankle. 2. Right Charcot hindfoot. 3. Right Charcot midfoot. POSTOPERATIVE DIAGNOSES: 1. Right Charcot ankle. 2. Right Charcot hindfoot. 3. Right Charcot midfoot. PROCEDURE: 1. Right pantalar fusion. 2. Right multiple midfoot fusion. SURGEON: Brandon Zamora MD. BATTERY MECHANIC: Divine Ibrahim, nurse practitioner, who was an integral part of the case, helping with all aspects of the case, and helping to increase our OR efficiency greatly. ANESTHESIA: General with LMA. TOURNIQUET TIME: Just over 2 hours. IMPLANTS: 1. [employer] beaming screws for the midfoot. 2. [employer] Valor nail and screws for the hindfoot and ankle. DISPOSITION: To PACU, hemodynamically stable. INDICATION FOR PROCEDURE: Ms. Young is a 48-year-old female, who I have been following for quite a long time. We fixed her left foot for Charcot midfoot and she has been doing pretty well on that side. This right foot and ankle though, has a history. She initially had a bad infection in the foot and was in the ICU and very septic when she came in. This was months and months ago. We washed everything out, got the infection under control. Unfortunately, then the ankle went into Charcot neuroarthropathy and disintegrated, along with the hindfoot and midfoot. I ended up taking her to the OR for bone biopsies to make sure that there was no residual infection before we did a big surgery, and all of that came back completely negative. So, I discussed with her about definitive fixation. She expressed understanding and wished to proceed. DESCRIPTION OF PROCEDURE: Ms. Young was identified in the preoperative holding area. The right foot was marked as correct surgical site. She was then wheeled to the operating room and placed supine on the operating table. All bony prominences were well padded. She was induced under general anesthesia, LMA was placed. Tourniquet was placed to the right thigh. Right lower extremity was then prepped with chlorhexidine gluconate scrub and ChloraPrep, and draped in normal sterile fashion. Surgical pause was performed. We identified the correct patient, the correct side, and the correct procedure. Preoperative antibiotics were given. Esmarch was used to exsanguinate the right lower extremity and tourniquet was inflated to 300 mmHg. I started with an incision in the anterior aspect of the ankle. That is where we did our bone biopsy. Dissection was carried down just next to the EHL tendon. I came right down on that ankle joint. We opened up the ankle joint. There was a lot of bony destruction that was there. There was hardly no normal tissue. I ended up using a rongeur to get a lot of that fibrinous tissue out, and then used a curette and curetted both the tibia and the talus down to decently healthy-appearing bone. It was at least bleeding bone. I then made a medial incision along the midfoot to the hindfoot. Dissection was carried down. We started around the medial aspect first. There was really not much of any deltoid attached to the medial malleolus anymore. That was all free. There was some space at the TN joint that was unstable as well. We cleared that out of all fibrinous tissue and got back to more healthy-appearing bone there as well. It looked like the NC joint was completely fused already and then came out to the tarsometatarsal joint. I used a Hintermann distractor, denuded all of the cartilage there, and prepared that joint. In all of the joints, I then cleaned out all of the fibrinous tissue and washed it out with normal saline. Then, I drilled both sides to repair all of those joints and prepared those for fusion. We then used Nipendo Allomatrix which is a bone graft substitute, and we used that with some cancellous chips, and packed that into the ankle joint and around that TN joint. I then reduced her deformity down. I got my guidewire in position for the TTC nail, got it center-centered up the tibia and good position on the calc as well. We then drilled and reamed, and then ended up putting a size 11.5 x 200 nail up the hindfoot. I secured it with a proximal screw and then a talar screw, got good compression at the ankle joint after that, and then 2 more calcaneal screws. That most inferior calcaneal screw was a really long one because I wanted to purchased in the midfoot. That completed the ankle and subtalar portion of our pantalar fusion. Overall alignment for that looked actually really good. We then made an incision on the 1st MTP joint. Dissection was carried down through the capsule and exposed that cartilage on the head of the first metatarsal. I then passed a guidewire from the first metatarsal head all the way up into the middle of the tibia. Fluoroscopic imaging on all views showed it was in good position. I then drilled it and put a solid bolt up that medial column, and that stabilized that column really well, and crossed those multiple midfoot joints and stabilized all of those, including the TN joint and the 1st TMT joint. I then made an incision over the 2nd MTP joint. Dissection was carried down. I then drilled a guidewire from the head of the 2nd metatarsal into the tibia, and then placed a solid bolt there as well, and that crossed all of the midfoot joints as well. That completed our multiple midfoot fusion and finished off our pantalar fusion as well. Overall alignment looked really good. I know she was really stiff, but alignment was neutral. All views looked like we had good compression of all of the joints and good position of all of our hardware. We then closed everything in a layered fashion with 0 Vicryl for the deep layers, 2-0 Vicryl for the subcutaneous, and yenny on the skin. The tourniquet was let down. At the end of the case, the patient had good capillary refill return to the toes. She was then awoken from general anesthesia, moved to her own bed, and taken to PACU in stable condition. PLAN: Postoperatively, she will be admitted and I will see her in the morning. cc: Brandon Zamora MD
[2019-01-20] MEDS: XANAX PO SCH (22:04)
[2019-01-20] MEDS: VOLTAREN PO SCH (23:28)
[2019-01-21] MEDS: OXY IR PO PRN ×5 (03:05→18:27)
[2019-01-21] MEDS: MORPHINE IV PRN ×2 (04:28→08:36)
[2019-01-21] MEDS: LOVENOX SUBQ SCH ×2 (04:33→05:11)
[2019-01-21] MEDS: KEFZOL 1 GM/D5W 1 GM/50 ML IVPB IV SCH ×2 (04:35→12:32)
[2019-01-21] MEDS: ZANAFLEX PO SCH (08:37)
[2019-01-21] MEDS: LYRICA PO SCH (08:37)
[2019-01-21] MEDS: VOLTAREN PO SCH (08:37)
[2019-01-21] MEDS: XANAX PO SCH ×2 (08:37→15:33)
[2019-01-21] MEDS: PERIDEX MT SCH ×2 (08:55→18:04)
[2019-01-21] MEDS ORDERED: ADDERALL PO SCH (09:00)
[2019-01-21] MEDS ORDERED: ZOLOFT PO SCH (09:00)
--- NOTE | 2019-01-21 13:23 | ORTHOPAEDICS PROGRESS NOTE ---
DATE: 01/21/2019 SUBJECTIVE: Ms. Young is in lying in bed this morning. She was asleep when I came in the room. When she woke up, she said she was having some pain in the foot. OBJECTIVE: Right lower extremity exam, good capillary refill to the toes. Splint is clean, dry, and intact. She is able to move the toes up and down but that does cause some pain. ASSESSMENT: Status post right Charcot midfoot, hindfoot and ankle reconstruction. PLAN: We will see how Ms. Young does this morning getting up with therapy. If she does well, we will plan on discharging her home this afternoon. She is nonweightbearing on the right lower extremity and when she is discharged, I will see her back in clinic in a week. cc: Brandon Zamora MD
[2019-01-21 16:01] VITALS: BP 100/61
== END 2019-01-21 18:46 | disposition home health service (06) | DRG 983 ==
LOC: SURHOLD 09:15 → 4N 16:06
PROVIDERS: ADMIT Orthopaedic Surgery; ATTEND Orthopaedic Surgery